=== PATIENT | female | born 1965 | race Two or more races ===

== ENCOUNTER 2018-04-20 16:44 | Emergency (ER) | payer MEDICAID ==
[~2018-04-20] VITALS: Ht 152.4 cm; Wt 56.7 kg
--- NOTE | 2018-04-20 17:00 | NUR ---
PRESENTS TO ER C/O LEFT LOWER LEG PAIN S/P FALL FRIDAY LAST WEEK. NO TRAUMA NOTED. A/OX 4, BREATHING EVEN AND UNLABORED. NO SOB, NAD, VITALS STABLE. SAFETY AND COMFORT MEASURES IN PLACE. AWAITING MD ORDERS.
[2018-04-20] MEDS ORDERED: ACETAMINOPHEN 325 MG TABLET PO ONE (17:30)
[2018-04-20] MEDS ORDERED: ACETAMINOPHEN 325 MG TABLET ONE (17:35)
[2018-04-20 18:08] VITALS: BP 132/71
--- NOTE | 2018-04-20 18:08 | NUR ---
Patient discharged to home in stable condition. Written and verbal after care instructions given. Patient verbalizes understanding of instruction.
== END 2018-04-20 18:08 | disposition home or self-care (01) ==
LOC: ER 16:53
DX: S80.12XA Contusion of left lower leg, initial encounter (principal); S90.02XA Contusion of left ankle, initial encounter; I10 Essential (primary) hypertension; Z88.6 Allergy status to analgesic agent; W18.39XA Other fall on same level, initial encounter; Y93.89 Activity, other specified; Y92.832 Beach as the place of occurrence of the external cause; Y99.8 Other external cause status
CPT/HCPCS: 73590; 99284; A4606; Z7610